=== PATIENT | female | born 1995 | race Caucasian/White ===

== ENCOUNTER 2017-05-13 14:48 | Emergency (ER) | payer OTHER ==
[~2017-05-13] VITALS: Ht 167.6 cm; Wt 58.0 kg
[2017-05-13 15:07] VITALS: Ht 167.6 cm; Wt 58.0 kg
[2017-05-13 16:30] LABS: URINE BLOOD (Dip) POC 3+ (NEGATIVE)
[2017-05-13] MEDS ORDERED: ACETAMINOPHEN 325 MG TAB PO ONE (16:30)
[2017-05-13] MEDS ORDERED: CEPH-443 PO (16:59)
[2017-05-13] MEDS ORDERED: NAPR-260 PO (16:59)
--- NOTE | 2017-05-13 17:11 | ERD ---
ER Documentation Chief Complaint Date/Time DATE: 05/13/17 TIME: 17:05 Chief Complaint BIB RA FOR MENSTRUAL CRAMPS HPI 22-year-old female patient with no significant past medical history presents to the ED stating that today is her first day of her menses. States that she has severe menstrual cramps that started earlier today. States that she changed 2 pads. Reports that she has some slight dysuria. Describes the pain as a burning sensation. Reports that she took Advil however it did not help with her symptoms. Denies any fever, nausea, vomiting, diarrhea, constipation, chest pain, shortness of breath, wheezing. Reports that she is not taking any control. Denies any recent traveling. Denies any vaginal discharge. Denies being sexually active. ROS All systems reviewed and are negative except as per history of present illness. Medications Home Meds Active Scripts Cephalexin* (Keflex*) 500 Mg Capsule, 500 MG PO QID for 7 Days, CAP Prov:KENNA ORDONEZ PA-C 05/13/17 Naproxen* (Naprosyn*) 500 Mg Tablet, 500 MG PO BID Y for PAIN AND/OR INFLAMMATION, #30 TAB Prov:KENNA ORDONEZ PA-C 05/13/17 Allergies Allergies: Coded Allergies: No Known Allergy (Unverified , 11/23/15) PMhx/Soc Hx Alcohol Use: No Hx Substance Use: No Hx Tobacco Use: No Smoking Status: Never smoker Physical Exam Vitals Vital Signs Date Time Temp Pulse Resp B/P Pulse Ox O2 Delivery O2 Flow Rate FiO2 05/13/17 15:07 98.8 82 18 131/75 99 Physical Exam Const: [id number], well-nourished. In no acute distress. Head: Atraumatic, normocephalic Eyes: Normal Conjunctiva without injection. No purulent discharge. ENT: Normal external ear, nose. Moist oropharynx without tonsillar exudates. Non -erythematous pharynx. Uvula midline. No drooling. No trismus. Neck: No cervical midline tenderness. Full range of motion. No meningismus. No cervical lymphadenopathy. No JVD. Resp: Clear to auscultation bilaterally. No wheezing, rhonchi, rales, or crackles. No accessory muscle use. No retractions. Cardio: Regular rate and rhythm. No murmurs, rubs or gallops. Abd: Soft, nontender, non distended. Normal bowel sounds. No palpable masses. No rebound tenderness. No guarding. Negative McBurney's point. Negative psoas sign. Negative obturator sign. Skin: No petechiae or rashes Back: No midline tenderness. No CVA tenderness. Ext: No cyanosis, or edema. Neur: Awake and alert. Normal gait. Normal coordination. Psych: Normal Mood and Affect Results 24 hrs Laboratory Tests Test 05/13/17 16:35 Bedside Urine pH (LAB) 6.0 Bedside Urine Protein (LAB) Trace Bedside Urine Glucose (UA) Negative Bedside Urine Ketones (LAB) 2+ Bedside Urine Blood 3+ Bedside Urine Nitrite (LAB) Negative Bedside Urine Leukocyte Esterase (L Trace Current Medications Medications (Trade) Dose Ordered Sig/Isabelle Route PRN Reason Start Time Stop Time Status Last Admin Dose Admin Acetaminophen (Tylenol Tab) 650 mg ONCE ONCE PO 05/13/17 16:30 05/13/17 16:31 DC 05/13/17 16:33 Procedures/MDM This is a 22-year-old female patient with no significant past medical history presents to the ED stating that her menstrual cramps have been severe in pain and also has dysuria. Patient is afebrile nontoxic appearing. Patient has normal vital signs. Urine dip shows trace leukocyte esterase, 3+ hematuria, 2+ ketones. Negative urine . Patient will be treated for a urinary tract infection. Low suspicion for symptomatic anemia, ectopic , sepsis , PID, appendicitis, ovarian torsion, tubo-ovarian abscess, surgical abdomen, or other emergent conditions. Discharge medications: Keflex, Naproxen Follow up with primary care physician in 1-2 days. Instructed patient to return to the ED sooner for any worsening symptoms. Patient's questions were answered. Patient understood and agreed with discharge plan. Patient discharged stable. Departure Diagnosis: Primary Impression: Menstrual cramps Additional Impression: Dysuria Condition: Stable Patient Instructions: Dysuria, Understanding the Normal Menstrual Cycle, Urinary Tract Infections in Women, Hormones Control Your Menstrual Cycle Referrals: COMMUNITY CLINICS YOU HAVE RECEIVED A MEDICAL SCREENING EXAM AND THE RESULTS INDICATE THAT YOU DO NOT HAVE A CONDITION THAT REQUIRES URGENT TREATMENT IN THE EMERGENCY DEPARTMENT. FURTHER EVALUATION AND TREATMENT OF YOUR CONDITION CAN WAIT UNTIL YOU ARE SEEN IN YOUR DOCTORS OFFICE WITHIN THE NEXT 1-2 DAYS. IT IS YOUR RESPONSIBILITY TO MAKE AN APPOINTMENT FOR FOLOW-UP CARE. IF YOU HAVE A PRIMARY DOCTOR --you should call your primary doctor and schedule an appointment IF YOU DO NOT HAVE A PRIMARY DOCTOR YOU CAN CALL OUR PHYSICIAN REFERRAL HOTLINE AT IF YOU CAN NOT AFFORD TO SEE A PHYSICIAN YOU CAN CHOSE FROM THE FOLLOWING [facility] [address] [facility] [address] [facility] [address] [facility] [address] [facility] [address] [facility]. [facility] [address] [facility]. [facility] YOU HAVE RECEIVED A MEDICAL SCREENING EXAM AND THE RESULTS INDICATE THAT YOU DO NOT HAVE A CONDITION THAT REQUIRES URGENT TREATMENT IN THE EMERGENCY DEPARTMENT. FURTHER EVALUATION AND TREATMENT OF YOUR CONDITION CAN WAIT UNTIL YOU ARE SEEN IN YOUR DOCTORS OFFICE WITHIN THE NEXT 1-2 DAYS. IT IS YOUR RESPONSIBILITY TO MAKE AN APPOINTMENT FOR FOLOW-UP CARE. IF YOU HAVE A PRIMARY DOCTOR --you should call your primary doctor and schedule and appointment IF YOU DO NOT HAVE A PRIMARY DOCTOR YOU CAN CALL OUR PHYSICIAN REFERRAL HOTLINE AT . IF YOU CAN NOT AFFORD TO SEE A PHYSICIAN YOU CAN CHOSE FROM THE FOLLOWING [facility] INSTITUTIONS: [facility] [address] [place] [address] [facility] [address] [place] [address] [facility] + [facility] [address] [place] [address] [facility] URGENT CARE/SPECIALTIES Additional Instructions: Call your primary care doctor TOMORROW for an appointment during the next 2-3 days.See the doctor sooner or return here if your condition worsens before your appointment time. KENNA ORDONEZ PA-C May 13, 2017 17:11
[2017-05-23 16:16] LABS: URINE BLOOD (Dip) POC 3+ (NEGATIVE)
== END 2017-05-13 17:23 | disposition home or self-care (01) ==
LOC: FTE 14:48
DX: N94.6 Dysmenorrhea, unspecified (principal); R30.0 Dysuria
CPT/HCPCS: 81003; Z7502; 99283